=== PATIENT | female | born 1935 | race Caucasian/White ===

== ENCOUNTER → 2021-11-09 | Outpatient (CLI) | payer MEDICARE | LOC: HEART CORB 10-02 10:15 | DX: I48.91 Unspecified atrial fibrillation (principal); R07.2 Precordial pain; R06.02 Shortness of breath; R91.1 Solitary pulmonary nodule; G47.33 Obstructive sleep apnea (adult) (pediatric); R06.09 Other forms of dyspnea; R60.0 Localized edema; I50.9 Heart failure, unspecified; R94.39 Abnormal result of other cardiovascular function study; I08.8 Other rheumatic multiple valve diseases | CPT/HCPCS: 78452; 93306; A9502; J2785 ==